=== PATIENT | male | born 1985 | race Caucasian/White ===

== ENCOUNTER → 2021-02-22 | Outpatient (CLI) | payer OTHER ==
--- NOTE | 2021-02-23 09:36 | RAD ---
EXAM: Bilateral knees, standing view; left knee, 2 views. HISTORY: Pain. COMPARISON: None. FINDINGS: A standing view both knees and 2 views of the left knee are obtained. There is no acute fra cture, dislocation or subluxation. There is trace joint fluid. IMPRESSION: No acute osseous finding. Trace joint fluid. Electronically signed by: Jazmin Avilez MD (02/23/2021 9:33 AM) [id number]
== END ==
LOC: RAD 15:28
PROVIDERS: ATTEND Physician Assistant
DX: M25.562 Pain in left knee (principal)
CPT/HCPCS: 73560; 73565